=== PATIENT | female | born 1975 | race Two or more races ===

== ENCOUNTER 2024-01-05 06:45 | Day surgery (SDC) | payer BC ==
[~2024-01-05] VITALS: Ht 154.9 cm; Wt 103.9 kg
[~2024-01-05 06:45] MED LIST: ASPI-498 PO; CHOL1CAP58 PO; COEN100C37 PO; HYDR25TA5 PO; LISI30TA8 PO; MAGN400T40 PO; METO25TA93 PO; OMEG-20 PO; PRAV20TA3 PO
[2024-01-05] MEDS ORDERED: HEPARIN IN NS 1000Units/500mL 1,500 ML ONE (07:46)
[2024-01-05] MEDS ORDERED: LIDOCAINE 1% HCL (LOCAL ANESTH.) INJ 20ML MDV ONE (07:46)
[2024-01-05] MEDS ORDERED: IOHEXOL 350 MG/ML 100ML IJ ONE (07:46)
[2024-01-05] MEDS ORDERED: IODIXANOL 320MG/ML 100ML BTL IV ONE ×2 (07:47→09:09)
[2024-01-05] MEDS ORDERED: ANGIOMAX 250 MG VIAL IV ONE (09:08)
[2024-01-05] MEDS ORDERED: HEPARIN SODIUM (PORCINE) 5000 UNITS/ML 1ML VIAL ONE (09:08)
[2024-01-05] MEDS ORDERED: VERAPAMIL 2.5MG/ML INJ 2ML VIAL IV ONE (09:08)
[2024-01-05] MEDS ORDERED: fentaNYL CITRATE 100 MCG/2 ML VL ONE (09:09)
[2024-01-05] MEDS ORDERED: SODIUM CHL 0.9% 0 ML ONE (09:09)
[2024-01-05] MEDS ORDERED: MIDAZOLAM HCL 2MG/2ML 2ml VIAL (1mg/ml) ONE (09:09)
[2024-01-05 10:00] VITALS: BP 133/71; PULSE 53; RESP 17; TEMP 97.9; O2SAT 95
[2024-01-05 10:14] VITALS: BP 139/85; PULSE 57; RESP 15; O2SAT 96
[2024-01-05 10:27] VITALS: BP 143/90; PULSE 55; RESP 16; O2SAT 95
[2024-01-05 10:46] VITALS: BP 146/86; PULSE 51; RESP 18; O2SAT 97
[2024-01-05 11:16] VITALS: BP 137/92; PULSE 56; RESP 20; O2SAT 98
[2024-01-05 11:45] VITALS: BP 142/81; PULSE 57; RESP 17; O2SAT 96
== END 2024-01-05 11:55 | disposition home or self-care (01) ==
LOC: CATH 06:45
PROVIDERS: ATTEND Internal Medicine
DX: R94.39 Abnormal result of other cardiovascular function study (principal); I34.1 Nonrheumatic mitral (valve) prolapse; Z79.82 Long term (current) use of aspirin; Z88.0 Allergy status to penicillin; Z79.899 Other long term (current) drug therapy; Z98.890 Other specified postprocedural states
CPT/HCPCS: 93458; C1887; C1894; J1644; J2001; J2250; J3010; J7030; Q9967; 99152; 99153